=== PATIENT | female | born 1985 | race African-American/Black ===

== ENCOUNTER 2016-05-01 23:41 | Emergency (ER) | payer MEDICAID ==
[~2016-05-01] VITALS: Ht 172.7 cm; Wt 91.5 kg
[~2016-05-01 23:41] MED LIST: NAPR500 PO; ZOFR4TAB3 PO
[2016-05-01 23:43] VITALS: BP 139/83; PULSE 98; RESP 18; TEMP 98.1; O2SAT 95
[2016-05-02] MEDS ORDERED: HYDROmorphone HCL PF 1 MG/ML VIAL IVS ONE (02:45)
[2016-05-02] MEDS ORDERED: SODIUM CHLORIDE 0.9% FLUSH 5 ML FLUSH IVF PRN (02:45)
[2016-05-02] MEDS ORDERED: ONDANSETRON HCL 4 MG/2 ML VIAL IVP ONE (02:45)
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
[2016-05-02 04:00] LABS: BASOPHIL # 0.1 TH/MM3 (0-0.2); EOSINOPHIL # 0.2 TH/MM3 (0-0.4); EOSINOPHIL % 2.8 % (0.0-4.0); HEMATOCRIT 38.8 % (35.0-46.0); HEMO FLAGS DIFF FINAL; LYMPH % 28.8 % (9.0-44.0); LYMPHOCYTE # 2.5 TH/MM3 (1.0-4.8); MEAN CELL VOLUME 79.2 FL (80.0-100.0); MEAN CORPUSCULAR HEMOGLOBIN 25.6 PG (27.0-34.0); MEAN CORPUSCULAR HGB CONC 32.3 % (32.0-36.0); MONO % 8.9 % (0.0-8.0); NEUT % 58.5 % (16.0-70.0); PLATELET COUNT 249 TH/MM3 (150-450); WHITE BLOOD COUNT 8.6 TH/MM3 (4.0-11.0)
[2016-05-02 04:02] VITALS: BP 123/74; PULSE 92; RESP 16; O2SAT 95
[2016-05-02 04:20] VITALS: RESP 16
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
[2016-05-02 05:51] LABS: BICARBONATE 29.1 MEQ/L (21.0-32.0); POTASSIUM 3.9 MEQ/L (3.5-5.1)
[2016-05-02] MEDS ORDERED: HYDR-3533 PO (06:05)
[2016-05-02 06:25] VITALS: BP 123/65
== END 2016-05-02 06:57 | disposition home or self-care (01) ==
LOC: NEPC 23:41
DX: S06.0X9A Concussion with loss of consciousness of unspecified duration, initial encounter (principal); W22.8XXA Striking against or struck by other objects, initial encounter; Y92.89 Other specified places as the place of occurrence of the external cause
CPT/HCPCS: 70450; 80048; 84703; 85025; 96374; 96375; 99285; J1170; J2405

== ENCOUNTER 2016-11-19 08:53 | Emergency (ER) | payer MEDICAID ==
[~2016-11-19] VITALS: Ht 172.7 cm; Wt 102.0 kg
[~2016-11-19 08:53] MED LIST changes: +HYDR-3533 PO; -NAPR500 PO; -ZOFR4TAB3 PO
[2016-11-19 09:09] VITALS: BP 146/87; PULSE 79; RESP 18; TEMP 97.9; O2SAT 100
--- NOTE | 2016-11-19 09:25 | PD ---
HPI Chief Complaint: Chest Pain Time Seen by Provider: 09:11 Travel History International Travel<30 days: No Contact w/Intl Traveler<30days: No Traveled to known affect area: No History of Present Illness HPI 31-year-old female complains of chest pain. Patient states the pain started last night. Patient states the pain sharp stabbing pain localized upper sternal area. Patient denies any pain radiation. Patient denies palpitation nausea diaphoresis. Patient states that the pain is worse with deep inspiration. Patient denies any fever chills coughing congestion. Patient denies any recent injury to the area. Patient denies history of CAD. Patient denies history hypertension, diabetes, hyperlipidemia. Patient is a smoker. Patient has family history heart disease. On a scale of 1-10 the pain is a 10. PFSH Past Medical History Dialysis: No Diminished Hearing: No ?: Not LMP: now : 2 Para: 1 Social History Alcohol Use: No Tobacco Use: No Substance Use: No Allergies-Medications (Allergen,Severity, Reaction): Uncoded Allergies: ONIONS (Allergy, Intermediate, Hives, 05/01/16) Reported Meds & Prescriptions Reported Meds & Active Scripts Active No Active Prescriptions or Reported Medications Review of Systems General / Constitutional: No: Fever Eyes: No: Visual changes HENT: No: Headaches Cardiovascular: Positive: Chest Pain or Discomfort Respiratory: No: Shortness of Breath Gastrointestinal: No: Abdominal Pain Genitourinary: No: Dysuria Musculoskeletal: No: Pain Skin: No Rash Neurologic: No: Weakness Psychiatric: No: Depression Endocrine: No: Polydipsia Hematologic/Lymphatic: No: Easy Bruising Physical Exam Narrative GENERAL: Well-nourished, well-developed patient. SKIN: Focused skin assessment warm/dry. HEAD: Normocephalic. EYES: No scleral icterus. No injection or drainage. NECK: Supple, trachea midline. No JVD or lymphadenopathy. CARDIOVASCULAR: Regular rate and rhythm without murmurs, gallops, or rubs. RESPIRATORY: Breath sounds equal bilaterally. No accessory muscle use. GASTROINTESTINAL: Abdomen soft, non-tender, nondistended. MUSCULOSKELETAL: No cyanosis, or edema. BACK: Nontender without obvious deformity. No CVA tenderness. Patient has mild to moderate tenderness on palpation upper part of the stoma area. No crepitus no deformity noted. Data Data Last Documented VS Vital Signs Date Time Temp Pulse Resp B/P Pulse Ox O2 Delivery O2 Flow Rate FiO2 11/19/16 09:51 95 11/19/16 09:51 82 16 127/75 Room Air 11/19/16 09:09 97.9 Orders Electrocardiogram (11/19/16 09:17) Complete Blood Count With Diff (11/19/16 09:17) Basic Metabolic Panel (Bmp) (11/19/16 09:17) Creatine Kinase (Cpk) (11/19/16 09:17) Troponin I (11/19/16 09:17) Prothrombin Time / Inr (Pt) (11/19/16 09:17) Act Partial Throm Time (Ptt) (11/19/16 09:17) Chest, Single Ap (11/19/16 09:17) Iv Access Insert/Monitor (11/19/16 09:17) Ecg Monitoring (11/19/16 09:17) Oximetry (11/19/16 09:17) Ketorolac Inj (Toradol Inj) (11/19/16 09:30) CKMB (11/19/16 09:53) CKMB% (11/19/16 09:53) Labs Laboratory Tests Test 11/19/16 09:53 White Blood Count 9.0 TH/MM3 Red Blood Count 5.21 MIL/MM3 Hemoglobin 13.6 GM/DL Hematocrit 41.8 % Mean Corpuscular Volume 80.1 FL Mean Corpuscular Hemoglobin 26.0 PG Mean Corpuscular Hemoglobin 32.4 % Concent Red Cell Distribution Width 12.8 % Platelet Count 200 TH/MM3 Mean Platelet Volume 8.9 FL Neutrophils (%) (Auto) 62.9 % Lymphocytes (%) (Auto) 22.7 % Monocytes (%) (Auto) 9.4 % Eosinophils (%) (Auto) 1.2 % Basophils (%) (Auto) 3.8 % Neutrophils # (Auto) 5.8 TH/MM3 Lymphocytes # (Auto) 2.0 TH/MM3 Monocytes # (Auto) 0.8 TH/MM3 Eosinophils # (Auto) 0.1 TH/MM3 Basophils # (Auto) 0.3 TH/MM3 CBC Comment DIFF FINAL Differential Comment Prothrombin Time 10.8 SEC Prothromb Time International 1.0 RATIO Ratio Activated Partial 26.6 SEC Thromboplast Time Sodium Level 139 MEQ/L Potassium Level 3.8 MEQ/L Chloride Level 109 MEQ/L Carbon Dioxide Level 21.7 MEQ/L Anion Gap 8 MEQ/L Blood Urea Nitrogen 9 MG/DL Creatinine 0.52 MG/DL Estimat Glomerular Filtration 164 ML/MIN Rate Random Glucose 80 MG/DL Calcium Level 8.3 MG/DL Total Creatine Kinase 250 U/L Creatine Kinase MB 2.3 NG/ML Creatine Kinase MB % 0.9 % Troponin I LESS THAN 0.02 NG/ML MDM Medical Decision Making Medical Screen Exam Complete: Yes Emergency Medical Condition: Yes Interpretation(s) 9:24 AM. EKG shows sinus rhythm nonspecific ST-T wave change. Last Impressions Chest X-Ray 11/19/16916 Signed Impressions: Service Date/Time: Monday, November 19, 2016 09:24 - CONCLUSION: No acute cardiopulmonary abnormality is identified. Adan Chambers MD 10:45 AM. CBC within normal limit. Cardiac enzymes are normal. Differential Diagnosis Differential diagnosis including musculoskeletal, angina, UT, PE, pneumothorax. Narrative Course 31-year-old female with chest pain. Chest pain is present on palpation and worse with deep inspiration. Diagnosis Primary Impression: Atypical chest pain Patient Instructions: General Instructions Additional Instructions: Take medication as needed for pain. 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 Return if worse. Off work today. May go back to work tomorrow. Med/Other Pt SpecificInfo: Prescription(s) given Scripts Meloxicam (Mobic)15 Mg Tab15 Mg PO DAILY #20 TAB Prov:Adams Miller MD 11/19/16 Disposition: 01 DISCHARGE HOME Condition: Stable Adams Miller MD Nov 19, 2016 09:25 Adams Miller MD Nov 19, 2016 09:25
[2016-11-19] MEDS ORDERED: KETOROLAC TROMETHAMINE 30 MG/ML (IVP) VIAL IV PUSH ONE (09:30)
--- NOTE | 2016-11-19 09:40 | RADRPT ---
EXAM DATE/TIME: 11/19/2016 09:24 [facility] COMPARISON: No previous studies available for comparison. INDICATIONS : Chest pain. MEDICAL HISTORY : None. SURGICAL HISTORY : None. ENCOUNTER: Initial ACUITY: 1 day PAIN SCORE: 10/10 LOCATION: Right chest. FINDINGS: Portable AP view of the chest demonstrates a normal-sized cardiac silhouette. No effusion, consolidat ion, or pneumothorax is visualized. The bones and soft tissues demonstrate no acute abnormality. CONCLUSION: No acute cardiopulmonary abnormality is identified. Adan Chambers MD on November 19, 2016 at 9:38 Board Certified Radiologist. This report was verified electronically.
[2016-11-19 09:51] VITALS: BP 127/75; PULSE 82; RESP 16; O2SAT 95
[2016-11-19 10:04] LABS: CHLORIDE 109 MEQ/L (98-107); POTASSIUM 3.8 MEQ/L (3.5-5.1); SODIUM (NA) 139 MEQ/L (136-145)
[2016-11-19 10:05] LABS: AUTOMATED NEUTROPHIL # 5.8 TH/MM3 (1.8-7.7); BASOPHIL # 0.3 TH/MM3 (0-0.2); BASOPHIL % 3.8 % (0.0-2.0); EOSINOPHIL # 0.1 TH/MM3 (0-0.4); EOSINOPHIL % 1.2 % (0.0-4.0); HEMATOCRIT 41.8 % (35.0-46.0); HEMO FLAGS DIFF FINAL; LYMPH % 22.7 % (9.0-44.0); MEAN CELL VOLUME 80.1 FL (80.0-100.0); MEAN CORPUSCULAR HGB CONC 32.4 % (32.0-36.0); MONO % 9.4 % (0.0-8.0); NEUT % 62.9 % (16.0-70.0); PLATELET COUNT 200 TH/MM3 (150-450); RED BLOOD COUNT 5.21 MIL/MM3 (4.00-5.30); RED CELL DISTRIBUTION WIDTH 12.8 % (11.6-17.2)
[2016-11-19 10:07] LABS: ANION GAP 8 MEQ/L (5-15); BICARBONATE 21.7 MEQ/L (21.0-32.0); BLOOD UREA NITROGEN 9 MG/DL (7-18)
[2016-11-19 10:09] LABS: APTT (PATIENT) 26.6 SEC (24.3-30.1); PROTHROMBIN TIME - PATIENT 10.8 SEC (9.8-11.6)
[2016-11-19 10:11] LABS: GLOMERULAR FILTRATION RATE 164 ML/MIN (>89)
[2016-11-19 10:14] LABS: CREATINE KINASE 250 U/L (26-192)
[2016-11-19 10:26] LABS: CKMB 2.3 NG/ML (0.5-3.6)
[2016-11-19] MEDS ORDERED: MOBI15TA PO (10:47)
--- NOTE | 2016-11-20 17:16 | EKG ---
Date Performed: 11/19/2016 Time Performed: 09:05:30 PTAGE: 31 years EKG: Sinus rhythm NORMAL ECG Since PREVIOUS TRACING , no significant change noted PREVIOUS TRACIN12/24/2006 12.27.04 DOCTOR: Eulalia Buenrostro Interpretating Date/Time 11/20/2016 17:15:30
== END 2016-11-19 11:13 | disposition home or self-care (01) ==
LOC: PHED 08:53
DX: R07.89 Other chest pain (principal)
CPT/HCPCS: 71010; 80048; 82550; 82552; 84484; 85025; 85610; 85730; 93005; 96374; 99285; J1885

== ENCOUNTER 2017-01-04 11:56 | Emergency (ER) | payer MEDICAID ==
[~2017-01-04] VITALS: Ht 172.7 cm; Wt 102.3 kg
[~2017-01-04 11:56] MED LIST changes: -HYDR-3533 PO; +MOBI15TA PO
[2017-01-04 12:03] VITALS: BP 119/78; PULSE 96; RESP 16; TEMP 99.1; O2SAT 99
[2017-01-04] MEDS ORDERED: IBUP-232 PO (13:20)
[2017-01-04] MEDS ORDERED: ROBA750T PO (13:20)
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
[2017-01-04] MEDS ORDERED: IBUPROFEN 600 MG TAB PO ONE (13:30)
[2017-01-04] MEDS ORDERED: METHOCARBAMOL 500 MG TAB PO ONE (13:30)
== END 2017-01-04 13:51 | disposition home or self-care (01) ==
LOC: PHED 11:56
DX: M54.5 Low back pain (principal); G89.29 Other chronic pain
CPT/HCPCS: 99283

== ENCOUNTER 2017-04-04 15:10 | Emergency (ER) | payer MEDICAID ==
[~2017-04-04] VITALS: Ht 172.7 cm; Wt 107.4 kg
[~2017-04-04 15:10] MED LIST changes: +IBUP-232 PO; +ROBA750T PO
[2017-04-04 15:19] VITALS: BP 153/79; PULSE 88; RESP 18; TEMP 98.5; O2SAT 100
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
== END 2017-04-04 15:55 | disposition home or self-care (01) ==
LOC: PHED 15:10
DX: M54.5 Low back pain (principal)
CPT/HCPCS: 99281